=== PATIENT | female | born 1980 | race Caucasian/White ===

== ENCOUNTER 2021-08-17 10:17 | Outpatient (REF) | payer OTHER, SELFPAY ==
[2021-08-17 11:19] LABS: Anion Gap 11 (12-20); Blood Urea Nitrogen 12 mg/dL (9-16); Calcium 9.5 mg/dL (8.4-10.2); Carbon Dioxide 26 mmol/L (22-29); Chloride 106 mmol/L (96-108); Cholesterol 141 mg/dL; Estimated Glomerular Filt Rate > 60; Glucose Random 94 mg/dL (60-115); HDL Cholesterol 40 mg/dL; LDL Cholesterol Calculated 88 mg/dl; Potassium 4.3 mmol/L (3.3-5.1); Sodium 139 mmol/L (135-145); Triglycerides 65 mg/dL
[2021-08-17 11:35] LABS: ~Hepatitis C Antibody Nonreactive (Nonreactive)
[2021-08-17 11:41] LABS: Thyroid Stimulating Hormone 0.78 uIU/mL (0.32-4.0)
== END 2021-08-17 10:18 | disposition home or self-care (01) ==
LOC: HO.LAB 10:17
PROVIDERS: PCP Nurse Practitioner Family; Visit Provider Nurse Practitioner Family
DX: Z00.00 Encounter for general adult medical examination without abnormal findings (principal)
CPT/HCPCS: 36415; 80048; 80061; 84443; 86803